=== PATIENT | female | born 1945 | race Caucasian/White ===

== ENCOUNTER → 2019-04-06 | Outpatient (CLI) | payer MEDICARE, OTHER ==
[~2019-04-06] MED LIST: ASPI-496 PO; LOSA100T14 PO
== END | disposition home or self-care (01) ==
LOC: STAR 12:53
PROVIDERS: ATTEND Orthopaedic Surgery
DX: Z01.818 Encounter for other preprocedural examination (principal); M16.11 Unilateral primary osteoarthritis, right hip; M51.36 Other intervertebral disc degeneration, lumbar region; M54.5 Low back pain; M54.16 Radiculopathy, lumbar region; M25.551 Pain in right hip
CPT/HCPCS: 87081

== ENCOUNTER 2019-04-10 11:08 | Observation (INO) | payer MEDICARE, OTHER ==
[~2019-04-10] VITALS: Ht 160 cm; Wt 81.1 kg
[~2019-04-10 11:08] MED LIST changes: -ASPI-496 PO
[2019-04-10] MEDS ORDERED: LACTATED RINGERS 1,000 ML IV SCH (11:57)
[2019-04-10] MEDS ORDERED: ACETAMINOPHEN 500 MG TABLET PO ONE (12:00)
[2019-04-10] MEDS ORDERED: LIDOCAINE-MPF 1%, 2ML INFIL ONE (12:00)
[2019-04-10] MEDS ORDERED: GABAPENTIN 300 MG CAPSULE PO ONE (12:00)
[2019-04-10] MEDS ORDERED: SCOPOLAMINE 1MG PATCH TD SCH (12:00)
[2019-04-10 12:13] VITALS: BP 148/91
[2019-04-10] MEDS ORDERED: FENTANYL PF 250 MCG/5ML ONE (12:58)
[2019-04-10] MEDS ORDERED: TRANEXAMIC ACID 100 MG/ML, 10ML ONE (13:46)
[2019-04-10] MEDS ORDERED: KETOROLAC 60 MG/2 ML ONE (13:46)
[2019-04-10] MEDS ORDERED: SODIUM CHLORIDE 0.9% 50 ML ONE (13:46)
[2019-04-10] MEDS ORDERED: ROPIvacaine/PF 0.2%, 20 ML ONE (13:46)
[2019-04-10] MEDS ORDERED: EPINEPHRINE 1 MG/ML, 1ML ONE (13:47)
[2019-04-10] MEDS ORDERED: LIDOCAINE-MPF 2% ,5ML ONE (13:57)
[2019-04-10] MEDS ORDERED: SENNA/DOCUSATE TABLET PO PRN (14:00)
[2019-04-10] MEDS ORDERED: PROMETHAZINE 25 MG/ML, 1ML IM PRN (14:00)
[2019-04-10] MEDS ORDERED: MAGNESIUM HYDROXIDE 8%, 30ML UDC PO PRN (14:00)
[2019-04-10] MEDS ORDERED: OXYcodone IR 5MG TABLET PO PRN (14:00)
[2019-04-10] MEDS ORDERED: DEXAMETHASONE 4 MG/ML, 1ML IVPush SCH (14:00)
[2019-04-10] MEDS ORDERED: HYDROmorphone 1 MG/ML, 1ML INJ IVPush PRN (14:00)
[2019-04-10] MEDS ORDERED: PSYLLIUM PACKET PO PRN (14:00)
[2019-04-10] MEDS ORDERED: ACETAMINOPHEN 650 MG/20.3 ML UDC PO PRN (14:00)
[2019-04-10] MEDS ORDERED: POLYETHYLENE GLYCOL 17 GM PACKET PO PRN (14:00)
[2019-04-10] MEDS ORDERED: ALUMINUM/MAG/SIMETHICONE 30 ML UDC PO PRN (14:00)
[2019-04-10] MEDS ORDERED: METOCLOPRAMIDE 5 MG/ML, 2ML IVPush PRN (14:00)
[2019-04-10] MEDS ORDERED: ONDANSETRON 2MG/ML, 2ML IV PRN (14:00)
[2019-04-10] MEDS ORDERED: ONDANSETRON 4 MG TABLET PO PRN (14:00)
[2019-04-10] MEDS ORDERED: BISACODYL 10 MG SUPP PR PRN (14:00)
[2019-04-10] MEDS ORDERED: DIPHENHYDRAMINE 50 MG/ML, 1ML IVPush PRN (14:00)
[2019-04-10] MEDS ORDERED: DIPHENHYDRAMINE 50 MG CAPSULE PO PRN (14:00)
[2019-04-10] MEDS ORDERED: PROPOFOL 50 ML ONE (14:10)
[2019-04-10] MEDS ORDERED: CEFAZOLIN 1,000 MG ONE (14:37)
[2019-04-10] MEDS ORDERED: DEXAMETHASONE 4 MG/ML, 1ML ONE (14:37)
[2019-04-10] MEDS ORDERED: ONDANSETRON 2MG/ML, 2ML ONE (14:37)
[2019-04-10] MEDS ORDERED: PROPOFOL 10 MG/ML, 20ML ONE (14:37)
[2019-04-10] MEDS ORDERED: MEPERIDINE/PF 25MG/ML,1ML IVPush PRN (15:00)
[2019-04-10] MEDS ORDERED: MIDAZOLAM 1 MG/ML, 2ML IV PRN (15:00)
[2019-04-10] MEDS ORDERED: PROMETHAZINE 25 MG/ML, 1ML IV PRN (15:00)
[2019-04-10] MEDS ORDERED: HYDROmorphone 2 MG/ML, 1ML IVPush PRN (15:00)
[2019-04-10] MEDS ORDERED: ALBUTEROL/IPRATROPIUM 2.5MG/0.5MG, 3 ML NPPB PRN (15:00)
[2019-04-10] MEDS ORDERED: hydrALAzine 20 MG/ML, 1ML IV PRN (15:00)
[2019-04-10] MEDS ORDERED: METOPROLOL 1 MG/ML, 5ML IV PRN (15:00)
[2019-04-10] MEDS ORDERED: TRANEXAMIC ACID 1,000 MG in SODIUM CHLORIDE 0.9% 100 ML IVPB ONE (15:30)
[2019-04-10] MEDS ORDERED: FENTANYL PF 100 MCG/2ML ONE (15:40)
[2019-04-10] MEDS ORDERED: OXYcodone 5 MG/5 ML ORAL.SOL UDC ONE (15:40)
[2019-04-10] MEDS: OXYcodone 5 MG/5 ML ORAL.SOL UDC PO PRN ×2 (15:45→15:55)
[2019-04-10] MEDS: FENTANYL PF 100 MCG/2ML IV PRN ×3 (15:45→16:00)
[2019-04-10] MEDS: POTASSIUM CHLORIDE 20 MEQ in D5%-0.45% NACL 1,000 ML IV SCH (18:16)
[2019-04-10] MEDS: KETOROLAC 30 MG/1 ML IV SCH (18:17)
[2019-04-10] MEDS: ACETAMINOPHEN 325 MG TABLET PO SCH ×2 (18:17→22:54)
[2019-04-10] MEDS: LOSARTAN 100 MG TAB PO SCH (18:17)
[2019-04-10 20:15] VITALS: BP 117/66
[2019-04-10] MEDS: DOCUSATE 100 MG CAPSULE PO SCH (22:54)
[2019-04-10] MEDS: CEFAZOLIN PMX 1GM/50ML 50 ML IVPB SCH (22:54)
[2019-04-10] MEDS: ASPIRIN 81 MG TABLET EC PO SCH (22:54)
[2019-04-10 23:16] VITALS: BP 96/61
[2019-04-11] MEDS: POTASSIUM CHLORIDE 20 MEQ in D5%-0.45% NACL 1,000 ML IV SCH (03:06)
[2019-04-11] MEDS: ACETAMINOPHEN 325 MG TABLET PO SCH ×3 (03:07→11:49)
[2019-04-11] MEDS: KETOROLAC 30 MG/1 ML IV SCH ×2 (03:07→08:54)
[2019-04-11 03:30] VITALS: BP 105/67
[2019-04-11] MEDS: CEFAZOLIN PMX 1GM/50ML 50 ML IVPB SCH (06:37)
[2019-04-11 07:45] VITALS: BP 130/84
[2019-04-11] MEDS ORDERED: ASPI-496 PO (08:54)
[2019-04-11] MEDS: ASPIRIN 81 MG TABLET EC PO SCH (08:54)
[2019-04-11] MEDS: LOSARTAN 100 MG TAB PO SCH (08:54)
[2019-04-11] MEDS: DOCUSATE 100 MG CAPSULE PO SCH (08:54)
[2019-04-11] MEDS ORDERED: TAMSULOSIN 0.4 MG CAP.ER.24H PO SCH (09:00)
[2019-04-11 12:09] VITALS: BP 104/64
== END 2019-04-11 12:50 | disposition home or self-care (01) ==
LOC: OUT 11:08 → ORIP 13:36 → 4NE 16:26 → DCLOUNGE 04-11 12:30
PROVIDERS: ADMIT Orthopaedic Surgery; ATTEND Orthopaedic Surgery
DX: M87.9 Osteonecrosis, unspecified (principal); M16.11 Unilateral primary osteoarthritis, right hip; I10 Essential (primary) hypertension; E66.9 Obesity, unspecified
CPT/HCPCS: 27130; 36415; 72170; 85014; 85018; 86850; 86900; 87015; 87070; 87075; 87102; 87116; 87176; 87205; 87206; 96365; 96366; 96375; 96376; 97161; 97165; C1713; C1776; G0378; J0171; J0690; J1100; J1885; J2405; J2704; J2795; J3010; J3480; J3490; J7120

== ENCOUNTER → 2019-09-21 | Outpatient (CLI) | payer MEDICARE, OTHER ==
[~2019-09-21] MED LIST changes: +ASPI-496 PO
[2019-09-21 13:40] LABS: BASOPHILS # (AUTO) 0.03 x10^3/uL (0-0.1); BASOPHILS % (AUTO) 1 % (0-1); EOSINOPHILS # (AUTO) 0.11 x10^3/uL (0-0.4); EOSINOPHILS % (AUTO) 1 % (1-7); LYMPHOCYTES # (AUTO) 2.13 x10^3/uL (1-3.4); LYMPHOCYTES % (AUTO) 28 % (22-44); MD NO; MEAN CORPUSCULAR HGB CONC 32.7 g/dL (32.4-35.8); MEAN PLATELET VOLUME 8.9 fL (7.4-10.4); MONOCYTES % (AUTO) 9 % (2-9); NEUTROPHILS # (AUTO) 4.78 x10^3/uL (1.8-6.8); NEUTROPHILS % (AUTO) 62 % (42-75); PLATELET COUNT 243 x10^3/uL (130-400); RED BLOOD COUNT 4.21 x10^6/uL (3.82-5.3); RED CELL DISTRIBUTION WIDTH 14.7 % (9.6-15.2)
[2019-09-21 13:47] LABS: INTERNATIONAL NORMALIZED RATIO 0.96 (0.93-1.1); PROTHROMBIN TIME 10.2 Seconds (9.6-11.5)
[2019-09-21 13:49] LABS: ALANINE AMINOTRANSFERASE 18 U/L (12-78); ALBUMIN 3.9 g/dL (3.4-5.0); ANION GAP 5 mmol/L (5-15); CALCIUM 9.9 mg/dL (8.5-10.1); CHLORIDE 113 mmol/L (98-107); CREATININE 1.08 mg/dL (0.55-1.02)
[2019-09-21 13:51] LABS: ALKALINE PHOSPHATASE 107 U/L (45-117); BILIRUBIN,TOTAL 1.2 mg/dL (0.2-1.0); TOTAL PROTEIN 7.9 g/dL (6.4-8.2)
== END | disposition home or self-care (01) ==
LOC: STAR 12:25
PROVIDERS: ATTEND Orthopaedic Surgery
DX: Z01.818 Encounter for other preprocedural examination (principal); M17.12 Unilateral primary osteoarthritis, left knee; M25.562 Pain in left knee
CPT/HCPCS: 36415; 80053; 83036; 85025; 85610; 85730; 87081; 87806; 93005; G0475

== ENCOUNTER 2019-09-28 10:42 | Outpatient (CLI) | payer MEDICARE, OTHER | END 2019-09-28 23:59 | disposition home or self-care (01) | LOC: STAR 10:42 | PROVIDERS: ATTEND Orthopaedic Surgery | DX: Z01.818 Encounter for other preprocedural examination (principal); Z11.59 Encounter for screening for other viral diseases | CPT/HCPCS: 36415; 87635 ==

== ENCOUNTER 2019-10-02 06:07 | Observation (INO) | payer MEDICARE, OTHER ==
[~2019-10-02] VITALS: Ht 162.6 cm; Wt 83.4 kg
[2019-10-02] MEDS ORDERED: KETOROLAC 60 MG/2 ML ONE (06:21)
[2019-10-02] MEDS ORDERED: TRANEXAMIC ACID 100 MG/ML, 10ML ONE (06:21)
[2019-10-02] MEDS ORDERED: SODIUM CHLORIDE 0.9% 50 ML ONE (06:22)
[2019-10-02] MEDS ORDERED: EPINEPHRINE 1 MG/ML, 1ML ONE (06:22)
[2019-10-02] MEDS ORDERED: ROPIvacaine/PF 0.2%, 20 ML ONE (06:22)
[2019-10-02] MEDS ORDERED: CHLORHEXIDINE 15 ML UDC MM STA (06:45)
[2019-10-02] MEDS ORDERED: ACETAMINOPHEN 500 MG TABLET PO STA (06:45)
[2019-10-02] MEDS ORDERED: GABAPENTIN 300 MG CAPSULE PO STA (06:45)
[2019-10-02] MEDS ORDERED: LACTATED RINGERS 1,000 ML IV SCH (06:45)
[2019-10-02] MEDS ORDERED: POTASSIUM CHLORIDE 20 MEQ in D5%-0.45% NACL 1,000 ML IV SCH (06:54)
[2019-10-02] MEDS ORDERED: PROMETHAZINE 25 MG/ML, 1ML IM PRN (07:00)
[2019-10-02] MEDS ORDERED: ONDANSETRON 4 MG TABLET PO PRN (07:00)
[2019-10-02] MEDS ORDERED: PSYLLIUM PACKET PO PRN (07:00)
[2019-10-02] MEDS ORDERED: DEXAMETHASONE 4 MG/ML, 1ML IVPush ONE (07:00)
[2019-10-02] MEDS ORDERED: ACETAMINOPHEN 650 MG/20.3 ML UDC PO PRN (07:00)
[2019-10-02] MEDS ORDERED: MAGNESIUM HYDROXIDE 8%, 30ML UDC PO PRN (07:00)
[2019-10-02] MEDS ORDERED: DIPHENHYDRAMINE 50 MG CAPSULE PO PRN (07:00)
[2019-10-02] MEDS ORDERED: POLYETHYLENE GLYCOL 17 GM PACKET PO PRN (07:00)
[2019-10-02] MEDS ORDERED: ONDANSETRON 2MG/ML, 2ML IVPush PRN (07:00)
[2019-10-02] MEDS ORDERED: KETOROLAC 30 MG/1 ML IV SCH (07:00)
[2019-10-02] MEDS ORDERED: DIPHENHYDRAMINE 50 MG/ML, 1ML IVPush PRN (07:00)
[2019-10-02] MEDS ORDERED: HYDROmorphone 1 MG/ML, 1ML INJ IVPush PRN ×2 (07:00→09:30)
[2019-10-02] MEDS ORDERED: SENNA/DOCUSATE TABLET PO PRN (07:00)
[2019-10-02] MEDS ORDERED: ALUMINUM/MAG/SIMETHICONE 30 ML UDC PO PRN (07:00)
[2019-10-02] MEDS ORDERED: OXYcodone IR 5MG TABLET PO PRN (07:00)
[2019-10-02 07:03] VITALS: BP 174/80
[2019-10-02] MEDS ORDERED: FENTANYL PF 100 MCG/2ML ONE ×4 (08:07→10:33)
[2019-10-02] MEDS ORDERED: MIDAZOLAM 1 MG/ML, 2ML ONE (08:07)
[2019-10-02] MEDS ORDERED: TAMSULOSIN 0.4 MG CAP.ER.24H PO SCH (09:00)
[2019-10-02] MEDS ORDERED: DOCUSATE 100 MG CAPSULE PO SCH (09:00)
[2019-10-02] MEDS ORDERED: DEXAMETHASONE 4 MG/ML, 1ML ONE (09:28)
[2019-10-02] MEDS ORDERED: LIDOCAINE-MPF 2% ,5ML ONE ×2 (09:28)
[2019-10-02] MEDS ORDERED: CEFAZOLIN 1,000 MG ONE (09:28)
[2019-10-02] MEDS ORDERED: ONDANSETRON 2MG/ML, 2ML ONE (09:28)
[2019-10-02] MEDS ORDERED: BUPIVACAINE/PF 0.5% ONE (09:28)
[2019-10-02] MEDS ORDERED: PROPOFOL 10 MG/ML, 20ML ONE (09:28)
[2019-10-02] MEDS ORDERED: LABETALOL 5MG/ML, 20ML IV PRN (09:30)
[2019-10-02] MEDS ORDERED: ALBUTEROL SULFATE 2.5 MG/3 ML NPPB PRN (09:30)
[2019-10-02] MEDS ORDERED: LORazepam 2 MG/ML, 1ML IVPush PRN (09:30)
[2019-10-02] MEDS ORDERED: hydrALAzine 20 MG/ML, 1ML IV PRN (09:30)
[2019-10-02] MEDS ORDERED: ACETAMINOPHEN 325 MG TABLET PO PRN (09:30)
[2019-10-02] MEDS ORDERED: PROMETHAZINE 25 MG/ML, 1ML IVPush PRN (09:30)
[2019-10-02] MEDS ORDERED: OXYcodone 5 MG/5 ML ORAL.SOL UDC PO PRN (09:30)
[2019-10-02] MEDS ORDERED: MEPERIDINE/PF 25MG/0.5ML IVPush PRN (09:30)
[2019-10-02] MEDS ORDERED: TRANEXAMIC ACID 1,000 MG in SODIUM CHLORIDE 0.9% 100 ML IVPB ONE (10:26)
[2019-10-02] MEDS ORDERED: OXYcodone 5 MG/5 ML ORAL.SOL UDC ONE (10:33)
[2019-10-02] MEDS: FENTANYL PF 100 MCG/2ML IV PRN ×2 (10:45→10:50)
[2019-10-02] MEDS ORDERED: LABETALOL 5MG/ML, 20ML ONE (10:56)
[2019-10-02 12:00] VITALS: BP 149/84
[2019-10-02] MEDS ORDERED: ASPI81TA45 PO (12:31)
[2019-10-02] MEDS ORDERED: CEFAZOLIN PMX 1GM/50ML 50 ML IVPB SCH (17:30)
[2019-10-02] MEDS ORDERED: ASPIRIN 81 MG TABLET EC PO SCH (18:00)
[2019-10-02 18:02] VITALS: BP 126/73
[2019-10-03] MEDS ORDERED: LOSARTAN 100 MG TAB PO SCH (09:00)
== END 2019-10-02 18:35 | disposition home or self-care (01) ==
LOC: OUT 06:07 → ORIP 07:25 → 4NE 11:55
PROVIDERS: ADMIT Orthopaedic Surgery; ATTEND Orthopaedic Surgery
DX: M17.12 Unilateral primary osteoarthritis, left knee (principal); M71.20 Synovial cyst of popliteal space [Baker], unspecified knee; I10 Essential (primary) hypertension; E66.9 Obesity, unspecified; Z79.899 Other long term (current) drug therapy; Z96.641 Presence of right artificial hip joint
CPT/HCPCS: 27447; 73560; 97161; C1713; C1776; G0378; J0171; J0690; J1100; J1885; J2250; J2405; J2704; J2795; J3010; J3490; J7120; S0020; 36415; 87635